=== PATIENT | male | born 1970 | race Caucasian/White ===

== ENCOUNTER → 2017-03-11 | Outpatient (CLI) | payer OTHER ==
--- NOTE | 2017-03-12 14:51 | XR ---
EXAMINATION TYPE: XR Hip Complete RT DATE OF EXAM: 03/11/2017 CLINICAL HISTORY: pain TECHNIQUE: AP and frogleg views of the right hip are obtained. COMPARISON: None. FINDINGS: There is no acute fracture/dislocation evident. The joint space appears moderately narro wed. Subchondral cyst formation and sclerosis seen.. The overlying soft tissue appears unremarkable. IMPRESSION: 1. There is no acute fracture or dislocation. ICD 10 NO FRACTURE, INITIAL EVALUATION
== END | disposition home or self-care (01) ==
LOC: RADXRYALE 11:58
PROVIDERS: ATTEND Physician Assistant Medical
DX: M25.551 Pain in right hip (principal)
CPT/HCPCS: 73502

== ENCOUNTER → 2017-11-13 | Outpatient (CLI) | payer OTHER ==
[2017-11-13 13:05] LABS: HCT 46.6 % (39.0-53.0); HGB 15.6 gm/dL (13.0-17.5); MCHC 33.4 g/dL (31.0-37.0); MCV 89.9 fL (80.0-100.0); Mean Platelet Volume 6.6; Platelet Count 288 k/uL (150-450); RBC 5.19 m/uL (4.30-5.90); RDW 12.5 % (11.5-15.5); WBC 9.7 k/uL (3.8-10.6)
[2017-11-13 13:07] LABS: Appearance,Urine Clear (Clear); Bilirubin,Urine Negative (Negative); Blood,Urine Negative (Negative); Color,Urine Yellow; Glucose,Urine (UA) Negative (Negative); Ketones,Urine Negative (Negative); Leukocyte Esterase,Urine Negative (Negative); Nitrite,Urine Negative (Negative); PH, Urine 5.5 (5.0-8.0); Protein,Urine Trace (Negative); Specific Gravity,Urine 1.025 (1.001-1.035); Urobilinogen,Urine <2.0 mg/dL (<2.0)
[2017-11-13 13:14] LABS: ALT 69 U/L (21-72); AST 45 U/L (17-59); Albumin 4.3 g/dL (3.5-5.0); Alkaline Phosphatase 65 U/L (38-126); Anion Gap 9 mmol/L; Blood Urea Nitrogen 16 mg/dL (9-20); Calcium 9.3 mg/dL (8.4-10.2); Carbon Dioxide 25 mmol/L (22-30); Chloride 109 mmol/L (98-107); Glucose 91 mg/dL (74-99); Partial Thromboplastin Time 23.8 sec (22.0-30.0); Potassium 4.4 mmol/L (3.5-5.1); Prothrombin Time 9.9 sec (9.0-12.0); Sodium 143 mmol/L (137-145); Total Bilirubin 0.8 mg/dL (0.2-1.3); Total Protein 7.1 g/dL (6.3-8.2)
== END | disposition home or self-care (01) ==
LOC: LABPAT 11:47
PROVIDERS: ATTEND Orthopaedic Surgery
DX: Z01.812 Encounter for preprocedural laboratory examination (principal)
CPT/HCPCS: 36415; 80053; 81003; 85027; 85610; 85730; 86850; 86900; 86901; 87070

== ENCOUNTER 2017-11-25 07:32 | Inpatient (IN) | payer OTHER ==
[2017-11-13 11:15] VITALS: BMI 37.8
[~2017-11-25 07:32] MED LIST: ACETAMINOPHEN TAB 500 MG TAB PO ONE; DEXAMETHASONE SOD PHOSPHATE 10 MG/ML 1 ML VIAL IV ONE; LIDOCAINE 1% 20 ML VIAL (10MG/ML) FOR IV START INTRADERMA PRN; MELOXICAM 7.5 MG TAB PO ONE; MIDAZOLAM 2 MG/2 ML VIAL IV PRN; ONDANSETRON 4 MG/2 ML VIAL IVP ONE; ROPIVACAINE 246.25 MG, EPINEPHrine 0.5 MG, KETOROLAC 30 MG, cloNIDine HCL/PF 80 MCG, WA... MISCELLANE ONE; TRANEXAMIC ACID 1,000 MG in SODIUM CHLORIDE 0.9% 50 ML IVPB ONE; ceFAZolin IN SWFI 2 GM/20 ML SYRINGE IVP ONE; fentaNYL (PF) 50 MCG/ML 2 ML AMP IV PRN
[2017-11-25] MEDS ORDERED: ONDANSETRON 4 MG/2 ML VIAL ONE (07:44)
[2017-11-25] MEDS: LACTATED RINGERS 1,000 ML IV SCH ×4 (08:35→13:45)
[2017-11-25] MEDS ORDERED: DEXAMETHASONE SOD PHOSPHATE 10 MG/ML 1 ML VIAL IV ONE (08:37)
[2017-11-25] MEDS ORDERED: SCOPOLAMINE 1.5MG/72HR PATCH TRANSDERM ONE (08:56)
[2017-11-25] MEDS ORDERED: MIDAZOLAM 2 MG/2 ML VIAL ONE ×2 (09:06→09:42)
[2017-11-25] MEDS ORDERED: MIDAZOLAM 2 MG/2 ML VIAL IV ONE (09:10)
[2017-11-25] MEDS ORDERED: DIAZEPAM 5 MG TAB PO PRN ×2 (09:14)
[2017-11-25] MEDS ORDERED: HYDROmorphone 1 MG/ML 1 ML SYRINGE IVP PRN ×3 (09:14)
[2017-11-25] MEDS ORDERED: NALOXONE 0.4 MG/ML 1 ML VIAL IV PRN (09:14)
[2017-11-25] MEDS ORDERED: hydrOXYzine PAMOATE 25 MG CAP PO PRN (09:14)
[2017-11-25] MEDS ORDERED: MAGNESIUM HYDROXIDE 2,400 MG/10 ML CUP PO PRN (09:14)
[2017-11-25] MEDS ORDERED: ONDANSETRON 4 MG/2 ML VIAL IVP PRN (09:14)
[2017-11-25] MEDS ORDERED: HYDROcodone/APAP 5-325MG 1 EACH TAB PO PRN (09:14)
[2017-11-25] MEDS ORDERED: diphenhydrAMINE 50 MG/ML 1 ML VIAL ONE (09:42)
[2017-11-25] MEDS ORDERED: TRANEXAMIC ACID 1,000 MG/10 ML VIAL ONE (09:42)
[2017-11-25] MEDS ORDERED: PROPOFOL 10 MG/ML 20 ML VIAL IV ONE (09:42)
[2017-11-25] MEDS ORDERED: fentaNYL (PF) 50 MCG/ML 2 ML AMP ONE (09:42)
[2017-11-25] MEDS ORDERED: PHENYLEPHRINE-0.9% NACL SYG 1 MG/10 ML SYRINGE ONE (09:42)
[2017-11-25] MEDS ORDERED: SODIUM CHLORIDE 0.9% IRRIG 1,000 ML BTL IRRIGATION ONE (09:42)
[2017-11-25] MEDS ORDERED: SODIUM CHLORIDE 0.9% 100 ML BAG ONE (09:42)
[2017-11-25] MEDS ORDERED: HEPARIN SODIUM,PORCINE 10,000 UNIT/ML 1 ML VIAL ONE (09:42)
[2017-11-25] MEDS ORDERED: ceFAZolin 3,000 MG in SODIUM CHLORIDE 0.9% IRRIGATIO 3,000 ML IRRIGATION ONE (10:10)
[2017-11-25] MEDS ORDERED: LACTATED RINGERS 1,000 ML IV ONE ×2 (10:53)
--- NOTE | 2017-11-25 11:03 | P.OP ---
Date of Procedure: 11/25/17 Preoperative Diagnosis: Severe osteoarthritis right hip Postoperative Diagnosis: Severe osteoarthritis right hip Procedure(s) Performed: Right total hip arthroplasty with a direct anterior approach Implants: Bowman and nephew Polarstem size 2 standard Bowman & Nephew R3, 3 hole acetabular shell, 54 mm Bowman & Nephew reflection 6.5 mm cancellus screw, 20 mm, 25 mm Bowman & Nephew R3, XLPE 20 acetabular liner Bowman & Nephew Oxinium femoral head 36 m, +0 All components were press-fit. The articulation is Oxinium on polyethylene. Anesthesia: spinal Surgeon: Terence Bledsoe Industrial Gas Fitter #1: Talia Murphy Estimated Blood Loss (ml): 250 (116 mL returned with Cell Saver) Pathology: other (Femoral head) Condition: stable Disposition: PACU Indications for Procedure: After failure of conservative treatment we discussed the surgical and nonsurgical treatment options at length. Patient wishes to proceed with a total hip arthroplasty with a direct anterior approach. Complications specific to this procedure were discussed at length, including but not limited to infection, leg length discrepancy, dislocation, and nerve injury. Patient is aware of all these complications and informed consent was obtained Operative Findings: The operative findings are consistent with severe osteoarthritis of the right hip Description of Procedure: Patient was seen and evaluated in the preoperative area, consent was reviewed, and the surgical site was marked with a skin marker. Patient was then brought to the operating room and given prophylactic antibiotics intravenously. 1 g of Tranexamic acid was also given. A spinal anesthetic was administered by the anesthesia department. The patient was then placed on the [facility] table with the bony prominences well-padded. The hip area was then prepped and draped in usual sterile fashion. A universal timeout was then performed, which confirmed the patient's name, surgical site, ALLERGIES, and procedure being performed. Next the incision site was located at 1 cm distal and 1 cm lateral to the anterior superior iliac spine. The skin and subcutaneous tissues were sharply incised. Incision was carefully dissected down to the fascia overlying the tensor fascia zakiya muscle. This fascia was then incised in line with the incision. Next, using blunt finger dissection, the tensor fascia zakiya muscle was dissected off its investing fascia. The muscle was then carefully retracted laterally with a cobra retractor over the lateral neck of the femur. Next, the circumflex vessels were identified and cauterized using the AquaMantis device. The anterior hip capsule was then exposed. The capsule was then opened and an inverted T fashion. Cobra retractors were then placed intracapsularly. The proximal femur was then visualized. The femoral neck was then osteotomized appropriate level above the lesser trochanter. Small amount of traction was placed with the [facility] table. A small wedge of bone was then removed from the remaining femoral head. Next, using a corkscrew femoral head was easily removed from the acetabulum. On gross visual inspection, the femoral head had complete loss of articular cartilage in multiple periarticular osteophytes. Attention was then turned to the acetabulum. the acetabulum was exposed and any remaining labrum was excised. Sequential reaming of the acetabulum was performed using fluoroscopic guidance. When the appropriate size was reached, a trial was then placed. The position and fit of the trial was checked with fluoroscopy. The trial was then removed. Then, using fluoroscopic guidance, the final implant was impacted at 20 of anteversion and 40 of abduction, and fully seated in the acetabulum. 2 screws were then placed in the acetabulum. Again fluoroscopy was used to check position of the screws. Next, the liner was then impacted, with a 20 elevated liner located in the anterior superior quadrant. Component locking was confirmed. Attention was then directed to the femur. With the aid of the [facility] table, the femur was externally rotated to approximately 130, extended, and abducted under the opposite leg. A side hook was then placed under the proximal femur, and the side hook elevator was used to elevate the proximal femur. Retractors were then placed. A capsular release was performed, as well as a release of the conjoined tendon, which afforded excellent visualization of the proximal femur. Next, a box osteotome was used to lateralize the proximal femur. A handle turner was then used to locate the femoral canal. Sequential broaching was then performed with appropriate size which afforded excellent fixation in the proximal femur. A trial was then placed with appropriate head and neck, and the hip was gently reduced with the aid of the [facility] table. Fluoroscopy was then used to check position of the components, as well as to ensure equal leg lengths. The hip was then gently dislocated and the trials were then removed. Final implants were then impacted and the hip was again reduced. Final fluoroscopic x-rays confirmed that the components were in anatomic position, as well as equal leg lengths. The hip was also taken through range of motion, and found to be stable. The hip was then copiously irrigated with antibiotic solution with pulsatile lavage. The hip was then irrigated with Irrisept solution. The soft tissues were then injected with a ropivacaine solution, which consisted of 246.25 mg of ropivacaine, 0.5 mg of epinephrine, 30 mg of Toradol, 80 g of clonidine, and 48.45 mL of sterile water, for a total of 100 mL of fluid injected. A second dose of 1 g of Tranexamic acid was also given. the fascia was then closed with 2-0 strata fix suture. The subcutaneous tissue was closed with 3-0 Vicryl. The subcuticular tissue was closed with 3-0 strata fix suture. The skin was then closed with Dermabond glue and a sterile silver dressing. The patient was then transferred to the recovery room in stable condition. The academic support assistant RAFI Carballo was required due to the complexity of surgery, and the need for skilled surgical tech for positioning, draping, exposure, retraction, and closure of the wound.
--- NOTE | 2017-11-25 11:16 | FL ---
EXAMINATION TYPE: FL guided pain mgmt statistic, XR Hip Limited RT DATE OF EXAM: 11/25/2017 COMPARISON: NONE HISTORY: Right anterior hip pain TECHNIQUE: Fluoroscopy. FINDINGS/IMPRESSION: Fluoroscopic guidance was provided during procedure performed by Dr. Bledsoe. A total of 44 seconds of fluoroscopic time was utilized during the procedure and 2 spot images was ac quired during the procedure.
--- NOTE | 2017-11-25 11:59 | XR ---
EXAMINATION TYPE: XR Hip Limited RT DATE OF EXAM: 11/25/2017 CLINICAL HISTORY: Right hip pain and osteoarthritis. TECHNIQUE: Single AP portable view of right hip is obtained immediately postoperatively. COMPARISON: None. FINDINGS: Metallic hardware from right hip arthroplasty is seen and appears satisfactory in alignment and position. There is evidence of recent surgery with subcutaneous gas and soft tissue swelling no gio laterally. IMPRESSION: Metallic hardware from right hip arthroplasty is satisfactory in position.
[2017-11-25] MEDS: SODIUM CHLORIDE 0.9% 1,000 ML IV SCH (13:39)
--- NOTE | 2017-11-25 14:25 | P.CONS ---
History of Present Illness - Reason for Consult Hypotension - History of Present Illness 47-year-old pleasant gentleman underwent the elective right hip arthroplasty direct anterior approach successfully underwent surgery no drains in place patient has a bit of hypotension which is expected post surgery patient doesn't have any other chronic medical problems did not pass gas yet did not move his bowel yet denied any fever chills nausea vomiting cough. Patient will be started on IV fluids at 100 mL/h Review of Systems REVIEW OF SYSTEMS: CONSTITUTIONAL: No fever, no malaise, no fatigue. HEENT: No recent visual problems or hearing problems. Denied any sore throat. CARDIOVASCULAR: No chest pain, orthopnea, PND, no palpitations, no syncope. PULMONARY: No shortness of breath, no cough, no hemoptysis. GASTROINTESTINAL: No diarrhea, no nausea, no vomiting, no abdominal pain. Normoactive bowel sounds. NEUROLOGICAL: No headaches, no weakness, no numbness. HEMATOLOGICAL: Denies any bleeding or petechiae. GENITOURINARY: Denies any burning micturition, frequency, or urgency. MUSCULOSKELETAL/RHEUMATOLOGICAL: Denies any joint pain, swelling, or any muscle pain. ENDOCRINE: Denies any polyuria or polydipsia. The rest of the 14-point review of systems is negative. Past Medical History Past Medical History: Osteoarthritis (OA), Sleep Apnea/CPAP/BIPAP Additional Past Medical History / Comment(s): no longer problems with sleep apnea since deviated septum History of Any Multi-Drug Resistant Organisms: None Reported Additional Past Surgical History / Comment(s): deviated septum repair,vasectomy Past Anesthesia/Blood Transfusion Reactions: Motion Sickness, Postoperative Nausea & Vomiting (PONV) Additional Past Anesthesia/Blood Transfusion Reaction / Comm: no hx blood transfusion Smoking Status: Current every day smoker - Past Family History Mother Family Medical History: No Reported History Medications and Allergies Home Medications Medication Instructions Recorded Confirmed Type No Known Home Medications 11/13/17 11/25/17 History Allergies Allergy/AdvReac Type Severity Reaction Status Date / Time No Known Allergies Allergy Verified 11/25/17 12:22 Physical Exam Vitals: Vital Signs Temp Pulse Pulse Resp BP Pulse Ox 11/25/17 12:10 58 L 16 98/55 97 11/25/17 11:55 64 16 109/54 100 11/25/17 11:40 64 16 102/52 100 11/25/17 11:28 96.8 F L 71 12 104/55 99 11/25/17 09:25 71 16 96 11/25/17 08:04 97.8 F 68 16 146/71 97 Intake and Output 11/24/17 11/25/17 11/25/17 22:59 06:59 14:59 Intake Total 1881 Output Total 250 Balance 1631 Intake: IV 1751 Intake, IV Titration 130 Amount Sodium Chloride 0.9% 1, 130 000 ml @ 65 mls/hr IV . [id number] [facility] Rx#:[id number] Output: Estimated Blood Loss 250 PHYSICAL EXAMINATION: GENERAL: The patient is alert and oriented x3, not in any acute distress. Well developed, well nourished. HEENT: Pupils are round and equally reacting to light. EOMI. No scleral icterus. No conjunctival pallor. Normocephalic, atraumatic. No pharyngeal erythema. No thyromegaly. CARDIOVASCULAR: S1 and S2 present. No murmurs, rubs, or gallops. PULMONARY: Chest is clear to auscultation, no wheezing or crackles. ABDOMEN: Soft, nontender, nondistended, normoactive bowel sounds. No palpable organomegaly. MUSCULOSKELETAL: No joint swelling or deformity. EXTREMITIES: No cyanosis, clubbing, or pedal edema. NEUROLOGICAL: Gross neurological examination did not reveal any focal deficits. SKIN: No rashes. Assessment and Plan Plan: -Right hip arthroplasty: Pain management due to prophylaxis per primary service -Hypotension expected in the perioperative period is symptomatic IV fluids at 120 mL per hour -Osteoarthritis -Sleep apnea
[2017-11-25] MEDS: ceFAZolin IN SWFI 2 GM/20 ML SYRINGE IVP SCH ×2 (16:11→23:27)
[2017-11-25] MEDS ORDERED: SENNOSIDES-DOCUSATE SODIUM 1 EACH TAB PO SCH (21:00)
[2017-11-25] MEDS: ASPIRIN 325 MG TAB PO SCH (21:35)
[2017-11-25] MEDS: HYDROcodone/APAP 5-325MG 1 EACH TAB PO PRN (21:36)
[2017-11-26] MEDS: SODIUM CHLORIDE 0.9% 1,000 ML IV SCH ×2 (01:13→11:26)
[2017-11-26] MEDS: HYDROcodone/APAP 5-325MG 1 EACH TAB PO PRN (03:54)
[2017-11-26 07:22] VITALS: BP 105/65; PULSE 83; RESP 16; TEMP 97.9
[2017-11-26] MEDS: ASPIRIN 325 MG TAB PO SCH (08:33)
[2017-11-26 08:57] LABS: Basophils % (A) 0 %; Eosinophils # (A) 0.1 k/uL (0-0.7); Eosinophils % (A) 0 %; HCT 39.1 % (39.0-53.0); HGB 13.5 gm/dL (13.0-17.5); Lymphocytes # (A) 2.3 k/uL (1.0-4.8); Lymphocytes % (A) 14 %; MCH 30.6 pg (25.0-35.0); MCHC 34.6 g/dL (31.0-37.0); MCV 88.5 fL (80.0-100.0); Mean Platelet Volume 6.6; Monocytes % (A) 6 %; Neutrophils # (A) 13.1 k/uL (1.3-7.7); Neutrophils % (A) 78 %; Platelet Count 291 k/uL (150-450); RBC 4.42 m/uL (4.30-5.90); RDW 12.6 % (11.5-15.5); WBC 16.8 k/uL (3.8-10.6)
[2017-11-26] MEDS ORDERED: MELOXICAM 7.5 MG TAB PO SCH (09:00)
--- NOTE | 2017-11-26 09:32 | P.DS ---
Providers Date of admission: 11/25/17 07:32 Expected date of discharge: 11/26/17 Attending physician: Terence Bledsoe Consults: 11/25/17 09:14 Consult Physician Routine Consulting Provider: Lisa Hummel Consult Reason/Comments: medical management Do you want consulting provider notified?: Yes Primary care physician: Terence Apodaca - Discharge Diagnosis(es) (1) Primary osteoarthritis of right hip Current Visit: Yes Status: Acute (2) S/P total hip arthroplasty Current Visit: Yes Status: Acute Hospital Course: This is a 47-year-old male with known history of degenerative arthritis of the right hip. The patient presents for evaluation. After discussion and consideration patient elects to proceed with total hip arthroplasty. The patient is seen preoperatively by Dr. Bledsoe and medically cleared for surgery by their primary care physician. Patient is admitted to [facility] on 11/25/2017 for total hip arthroplasty. The procedures performed without complication or sequelae. The patient is doing well postoperatively. Labs and vital signs are stable on day of discharge. On day of discharge patient's hip incision is healing well. There is minimal erythema. There is no drainage noted at this time. There is minimal soft tissue swelling to the hip and thigh. Patient has full foot and ankle motion without difficulty or pain. Neurovascular status to the right lower extremity is intact. Patient is discharged home in good condition. Please see med rec for accurate list of home medications. Plan - Discharge Summary Discharge Rx Participant: Yes New Discharge Prescriptions: New Aspirin 325 mg PO BID #60 tab HYDROcodone/APAP 5-325MG [[place] 5-325] 1 - 2 tab PO Q4-6H PRN #84 tab PRN Reason: Pain Sennosides [Senokot] 1 tab PO BID #60 tablet Discharge Medication List Aspirin 325 mg PO BID #60 tab 11/26/17 [Rx] HYDROcodone/APAP 5-325MG [[place] 5-325] 1 - 2 tab PO Q4-6H PRN #84 tab 11/26/17 [ Rx] Sennosides [Senokot] 1 tab PO BID #60 tablet 11/26/17 [Rx] Follow up Appointment(s)/Referral(s): Terence Bledsoe DO [Doctor of Osteopathic Medicine] - 2 Weeks Activity/Diet/Wound Care/Special Instructions: Weightbearing as tolerated with walker Leave dressing intact. Dressing may be removed by home care nurse in 10 days. May shower with dressing on. Follow-up with [facility] in 2 weeks, please call with any questions or concerns [phone] Discharge Disposition: HOME WITH HOME HEALTH SERVICES
[2017-11-26] MEDS: LACTATED RINGERS 1,000 ML IV SCH (10:27)
== END 2017-11-26 13:05 | disposition home health service (06) | DRG 470 ==
LOC: 2ORMAIN 07:32 → 3SUR 11:43
PROVIDERS: ADMIT Orthopaedic Surgery; ATTEND Orthopaedic Surgery
PROC: 30233N0 Transfusion of Autologous Red Blood Cells into Peripheral Vein, Percutaneous Approach (ICD-10-PCS; 2017-11-25)
PROC: 0SR906A Replacement of Right Hip Joint with Oxidized Zirconium on Polyethylene Synthetic Substitute, Uncemented, Open Approach (ICD-10-PCS; principal; 2017-11-25 09:15)
DX: M16.11 Unilateral primary osteoarthritis, right hip (principal); I95.9 Hypotension, unspecified; E66.01 Morbid (severe) obesity due to excess calories; Z68.37 Body mass index [BMI] 37.0-37.9, adult; G47.33 Obstructive sleep apnea (adult) (pediatric); K21.9 Gastro-esophageal reflux disease without esophagitis; F17.210 Nicotine dependence, cigarettes, uncomplicated; Z98.52 Vasectomy status; Z99.89 Dependence on other enabling machines and devices
CPT/HCPCS: 73501; 85025; 86850; 86891; 86900; 86901; 88300

== ENCOUNTER 2020-03-11 04:20 | Emergency (ER) | payer OTHER ==
[2020-03-11 04:32] VITALS: BP 149/90; PULSE 72; RESP 20; TEMP 97.7
[2020-03-11] MEDS ORDERED: KETOROLAC 15 MG/ML 1 ML VIAL IVP STA (04:39)
--- NOTE | 2020-03-11 05:03 | ED ---
Abdominal Pain HPI - General Chief Complaint: Abdominal Pain Stated Complaint: LT flank pain Time Seen by Provider: 03/11/20 04:29 Source: patient Mode of arrival: ambulatory Limitations: no limitations - History of Present Illness Initial Comments: This patient is 50-year-old man who presents to be evaluated for left flank pain. The patient states that he started having pain initially couple of days ago and he felt that it was in his back. He did go to see a chiropractor. Patient states that over the course of tonight the pain worsened. He also has been having some nausea and vomiting tonight. No change in urination noted. No change in bowel movements. MD Complaint: flank pain -: days(s) Location: L flank Radiation: LLQ Migration to: no migration Severity: severe Quality: cramping Consistency: colicky Improves With: nothing Worsens With: nothing Associated Symptoms: nausea, vomiting - Related Data Previous Rx's Medication Instructions Recorded Aspirin 325 mg PO BID #60 tab 11/26/17 HYDROcodone/APAP 5-325MG [[place] 1 - 2 tab PO Q4-6H PRN #84 tab 11/26/17 5-325] Sennosides [Senokot] 1 tab PO BID #60 tablet 11/26/17 HYDROcodone/APAP 5-325MG [[place] 1 tab PO Q4HR PRN 3 Days #18 tab 03/11/20 5-325] Ondansetron Odt [Zofran ODT] 4 mg PO Q8HR PRN #10 tab 03/11/20 Tamsulosin [Flomax] 0.4 mg PO DAILY #14 cap 03/11/20 Allergies Allergy/AdvReac Type Severity Reaction Status Date / Time No Known Allergies Allergy Verified 03/11/20 04:32 Review of Systems ROS Statement: Those systems with pertinent positive or pertinent negative responses have been documented in the HPI. ROS Other: All systems not noted in ROS Statement are negative. Constitutional: Denies: fever, chills Respiratory: Denies: cough, dyspnea Cardiovascular: Denies: chest pain, palpitations, edema Gastrointestinal: Reports: as per HPI, abdominal pain, nausea, vomiting. Denies: diarrhea, constipation, melena, hematochezia Genitourinary: Denies: dysuria, hematuria Musculoskeletal: Denies: back pain Skin: Denies: rash Neurological: Denies: headache, weakness, numbness Past Medical History Past Medical History: Osteoarthritis (OA), Sleep Apnea/CPAP/BIPAP Additional Past Medical History / Comment(s): no longer problems with sleep apnea since deviated septum History of Any Multi-Drug Resistant Organisms: None Reported Past Surgical History: Joint Replacement Additional Past Surgical History / Comment(s): deviated septum repair,vasectomy Past Anesthesia/Blood Transfusion Reactions: Motion Sickness, Postoperative Nausea & Vomiting (PONV) Additional Past Anesthesia/Blood Transfusion Reaction / Comment(s): no hx blood transfusion Past Psychological History: No Psychological Hx Reported Smoking Status: Never smoker Past Alcohol Use History: Occasional Past Drug Use History: None Reported - Past Family History Mother Family Medical History: No Reported History General Exam Limitations: no limitations General appearance: alert, in no apparent distress Head exam: Present: atraumatic, normocephalic Eye exam: Present: normal appearance. Absent: scleral icterus, conjunctival injection Neck exam: Present: normal inspection Respiratory exam: Present: normal lung sounds bilaterally. Absent: respiratory distress, wheezes, rales, rhonchi, stridor Cardiovascular Exam: Present: regular rate, normal rhythm, normal heart sounds. Absent: systolic murmur, diastolic murmur, rubs, gallop GI/Abdominal exam: Present: soft. Absent: distended, tenderness, guarding, rebound, rigid, mass, pulsatile mass, hernia Extremities exam: Present: normal inspection, normal capillary refill. Absent: pedal edema, calf tenderness Back exam: Present: normal inspection. Absent: CVA tenderness (R), CVA tenderness (L), vertebral tenderness Neurological exam: Present: alert Skin exam: Present: warm, dry, intact, normal color. Absent: rash Course Vital Signs 03/11/20 04:29 Temperature 97.7 F Pulse Rate 72 Respiratory 20 Rate Blood Pressure 149/90 O2 Sat by Pulse 97 Oximetry Medical Decision Making - Medical Decision Making Patient's 50-year-old man presenting with left flank pain and found to have stone on the computed tomography scan. He has had marked improvement in symptoms following medication. Patient amenable for outpatient management at this point. We discussed appropriate further care and follow-up as well as the return parameters. Also discussed the small lung nodule found and as patient is smoker he is directed to follow up for repeat imaging within one year. - Lab Data Result diagrams: 03/11/20 05:27 03/11/20 05:27 Lab Results 03/11/20 03/11/20 03/11/20 Range/Units 04:42 05:27 05:27 WBC 10.2 (3.8-10.6) k/uL RBC 5.15 (4.30-5.90) m/uL Hgb 15.9 (13.0-17.5) gm/dL Hct 46.0 (39.0-53.0) % MCV 89.3 (80.0-100.0) fL MCH 30.9 (25.0-35.0) pg MCHC 34.6 (31.0-37.0) g/dL RDW 12.2 (11.5-15.5) % Plt Count 290 (150-450) k/uL MPV 6.8 Neutrophils % 68 % Lymphocytes % 21 % Monocytes % 7 % Eosinophils % 2 % Basophils % 1 % Neutrophils # 6.9 (1.3-7.7) k/uL Lymphocytes # 2.1 (1.0-4.8) k/uL Monocytes # 0.7 (0-1.0) k/uL Eosinophils # 0.2 (0-0.7) k/uL Basophils # 0.1 (0-0.2) k/uL Sodium 141 (137-145) mmol/L Potassium 4.6 (3.5-5.1) mmol/L Chloride 110 H (98-107) mmol/L Carbon Dioxide 23 (22-30) mmol/L Anion Gap 8 mmol/L BUN 15 (9-20) mg/dL Creatinine 1.18 (0.66-1.25) mg/dL Est GFR (CKD-EPI)AfAm 83 (>60 ml/min/1.73 sqM) Est GFR (CKD-EPI)NonAf 72 (>60 ml/min/1.73 sqM) Glucose 132 H (74-99) mg/dL Calcium 9.2 (8.4-10.2) mg/dL Total Bilirubin 0.4 (0.2-1.3) mg/dL AST 38 (17-59) U/L ALT 71 H (4-49) U/L Alkaline Phosphatase 69 (38-126) U/L Total Protein 7.2 (6.3-8.2) g/dL Albumin 4.3 (3.5-5.0) g/dL Amylase 146 H (30-110) U/L Lipase 888 H (23-300) U/L Urine Color Yellow Urine Appearance Clear (Clear) Urine pH 5.5 (5.0-8.0) Ur Specific [place] 1.024 (1.001-1.035) Urine Protein Trace H (Negative) Urine Glucose (UA) Negative (Negative) Urine Ketones Negative (Negative) Urine Blood Large H (Negative) Urine Nitrite Negative (Negative) Urine Bilirubin Negative (Negative) Urine Urobilinogen <2.0 (<2.0) mg/dL Ur Leukocyte Esterase Negative (Negative) Urine RBC 146 H (0-5) /hpf Urine WBC 1 (0-5) /hpf Ur Squamous Epith Cells <1 (0-4) /hpf Urine Mucus Rare H (None) /hpf Disposition Clinical Impression: Kidney stone on left side Disposition: HOME SELF-CARE Condition: Good Instructions (If sedation given, give patient instructions): Kidney Stones (ED) Additional Instructions: The computed tomography scan found a small nodule at the base of your lung. Please follow-up with your physician to see about repeat imaging in one year Prescriptions: Tamsulosin [Flomax] 0.4 mg PO DAILY #14 cap HYDROcodone/APAP 5-325MG [[place] 5-325] 1 tab PO Q4HR PRN 3 Days #18 tab PRN Reason: Pain Ondansetron Odt [Zofran ODT] 4 mg PO Q8HR PRN #10 tab PRN Reason: Nausea Is patient prescribed a controlled substance at d/c from ED?: Yes When asked, does pt state using other controlled substances?: No If prescribed controlled substance>3 days was MAPS reviewed?: Prescribed <3 Days If opioid is for acute pain is fill amount 7 days or less?: Yes If Rx opioid, was Start Talking consent form obtained?: Yes Referrals: Melissa Mann, [facility] [Primary Care Provider] - 1-2 days Kevin Orellana MD [STAFF PHYSICIAN] - 1-2 days
[2020-03-11] MEDS ORDERED: ONDANSETRON 4 MG/2 ML VIAL IVP STA (05:19)
[2020-03-11 05:36] LABS: Appearance,Urine Clear (Clear); Bilirubin,Urine Negative (Negative); Blood,Urine Large (Negative); Color,Urine Yellow; Glucose,Urine (UA) Negative (Negative); Ketones,Urine Negative (Negative); Leukocyte Esterase,Urine Negative (Negative); Mucus,Urine Rare /hpf; Nitrite,Urine Negative (Negative); PH, Urine 5.5 (5.0-8.0); Protein,Urine Trace (Negative); RBC,Urine 146 /hpf (0-5); Specific Gravity,Urine 1.024 (1.001-1.035); Squamous Epithelial Cell,Urine <1 /hpf (0-4); Urobilinogen,Urine <2.0 mg/dL (<2.0); WBC,Urine 1 /hpf (0-5)
[2020-03-11 05:39] LABS: Basophils # (A) 0.1 k/uL (0-0.2); Basophils % (A) 1 %; Eosinophils # (A) 0.2 k/uL (0-0.7); Eosinophils % (A) 2 %; HGB 15.9 gm/dL (13.0-17.5); Lymphocytes # (A) 2.1 k/uL (1.0-4.8); Lymphocytes % (A) 21 %; MCH 30.9 pg (25.0-35.0); MCHC 34.6 g/dL (31.0-37.0); MCV 89.3 fL (80.0-100.0); Mean Platelet Volume 6.8; Monocytes # (A) 0.7 k/uL (0-1.0); Monocytes % (A) 7 %; Neutrophils # (A) 6.9 k/uL (1.3-7.7); Neutrophils % (A) 68 %; Platelet Count 290 k/uL (150-450); RBC 5.15 m/uL (4.30-5.90); RDW 12.2 % (11.5-15.5); WBC 10.2 k/uL (3.8-10.6)
[2020-03-11 05:47] LABS: Albumin 4.3 g/dL (3.5-5.0); Calcium 9.2 mg/dL (8.4-10.2); Potassium 4.6 mmol/L (3.5-5.1); Total Bilirubin 0.4 mg/dL (0.2-1.3); Total Protein 7.2 g/dL (6.3-8.2)
[2020-03-11] MEDS ORDERED: TAMSULOSIN 0.4 MG CAP.ER.24H PO STA (06:04)
--- NOTE | 2020-03-11 06:08 | CT ---
EXAM: CT Abdomen and Pelvis Without Intravenous Contrast CLINICAL HISTORY: ITS.REASON CT Reason: stone protocol, L flank pain TECHNIQUE: Axial computed tomography images of the abdomen and pelvis without intravenous contrast. CTDI is 20.57 mGy and DLP is 1200.4 mGy-cm. This CT exam was performed using one or more of the following dose reduction techniques: automated exposure control, adjustment of the mA and/or kV according to patient size, and/or use of iterative reconstruction technique. Coronal and sagittal reformatted images were created and reviewed. COMPARISON: No relevant prior studies available. FINDINGS: Lung bases: 4 mm subpleural nodule in lateral left lower lobe on series 201 image 24. ABDOMEN: Liver: Mildly enlarged fatty liver. Gallbladder and bile ducts: Unremarkable. No calcified stones. No ductal dilation. Pancreas: Unremarkable. No ductal dilation. Spleen: Unremarkable. No splenomegaly. Adrenals: Unremarkable. No mass. Kidneys and ureters: 5 x 7 mm obstructing stone in the proximal left ureter about 1.5 cm from the renal pelvis, causes mild hydronephrosis. Stomach and bowel: Unremarkable. No obstruction. No mucosal thickening. PELVIS: Appendix: Normal appendix. Bladder: Unremarkable. No stones. Reproductive: Unremarkable as visualized. ABDOMEN and PELVIS: Intraperitoneal space: Unremarkable. No free air. No significant fluid collection. Bones/joints: No acute fracture. No dislocation. Soft tissues: Unremarkable. Vasculature: Unremarkable. No abdominal aortic aneurysm. Lymph nodes: Unremarkable. No enlarged lymph nodes. IMPRESSION: 1. 5 x 7 mm obstructing stone in the proximal left ureter about 1.5 cm from the renal pelvis, causes mild hydronephrosis. 2. 4 mm subpleural nodule in lateral left lower lobe. Fleischner Society Guidelines for low-risk patients, no follow-up is necessary. For high-risk patients (smoking history or other known risk factors) an optional chest CT at 12 months could be performed.
[2020-03-11] MEDS ORDERED: HYDROmorphone 0.5 MG/0.5 ML SYRINGE IVP STA (06:27)
== END 2020-03-11 06:44 | disposition home or self-care (01) ==
LOC: EC 04:20
DX: N13.2 Hydronephrosis with renal and ureteral calculous obstruction (principal); R91.1 Solitary pulmonary nodule; G47.30 Sleep apnea, unspecified; F17.200 Nicotine dependence, unspecified, uncomplicated; Z99.89 Dependence on other enabling machines and devices; Z96.0 Presence of urogenital implants; Z96.60 Presence of unspecified orthopedic joint implant
CPT/HCPCS: 36415; 80053; 82150; 83690; 85025; 81001; 74176; 99284; J2405; J1885; J1170

== ENCOUNTER 2020-03-12 21:30 | Inpatient (IN) | payer OTHER ==
[2020-03-12] MEDS ORDERED: KETOROLAC 15 MG/ML 1 ML VIAL IVP STA (21:50)
[2020-03-12] MEDS ORDERED: HYDROmorphone 0.5 MG/0.5 ML SYRINGE IVP STA (21:50)
[2020-03-12] MEDS ORDERED: ONDANSETRON 4 MG/2 ML VIAL IVP STA (22:02)
--- NOTE | 2020-03-12 22:06 | ED ---
Abdominal Pain HPI - General Chief Complaint: Abdominal Pain Stated Complaint: Revisit Kidney Stone Time Seen by Provider: 03/12/20 21:49 Source: patient Mode of arrival: ambulatory Limitations: no limitations - History of Present Illness Initial Comments: 's patient is a 50-year-old man returns for reevaluation related to the left flank and left lower quadrant pain. He was seen here on the chair frame builder of the for the same, where computed tomography scan did show a 5 x 7 mm stone in the proximal left ureter. At that time the patient's symptoms were well controlled and he was amenable to outpatient management, but the patient states the symptoms recurred later in that day and he has been trying to manage at home with the medications but continues to have pain, nausea and vomiting. He does state that the pain seems to have progressed further into the left lower quadrant. He has not noted fever or chills. MD Complaint: flank pain -: days(s) Location: L flank Radiation: none Migration to: LLQ Severity: severe Quality: cramping, sharp Consistency: colicky Improves With: nothing Worsens With: nothing Associated Symptoms: nausea, vomiting Treatments Prior to Arrival: prescription analgesics - Related Data Previous Rx's Medication Instructions Recorded HYDROcodone/APAP 5-325MG [[place] 1 tab PO Q4HR PRN 3 Days #18 tab 03/11/20 5-325] Ondansetron Odt [Zofran ODT] 4 mg PO Q8HR PRN #10 tab 03/11/20 Tamsulosin [Flomax] 0.4 mg PO DAILY #14 cap 03/11/20 Allergies Allergy/AdvReac Type Severity Reaction Status Date / Time No Known Allergies Allergy Verified 03/12/20 22:28 Review of Systems ROS Statement: Those systems with pertinent positive or pertinent negative responses have been documented in the HPI. ROS Other: All systems not noted in ROS Statement are negative. Constitutional: Denies: fever, chills, weakness Respiratory: Denies: cough, dyspnea Cardiovascular: Denies: chest pain, palpitations, edema Gastrointestinal: Reports: abdominal pain, nausea, vomiting. Denies: diarrhea, constipation, melena, hematochezia Genitourinary: Denies: dysuria, frequency, hematuria, testicular pain, testicular mass Musculoskeletal: Denies: back pain Skin: Denies: rash Neurological: Denies: headache, weakness Past Medical History Past Medical History: Osteoarthritis (OA), Sleep Apnea/CPAP/BIPAP Additional Past Medical History / Comment(s): no longer problems with sleep apnea since deviated septum History of Any Multi-Drug Resistant Organisms: None Reported Past Surgical History: Joint Replacement Additional Past Surgical History / Comment(s): deviated septum repair,vasectomy Past Anesthesia/Blood Transfusion Reactions: Motion Sickness, Postoperative Nausea & Vomiting (PONV) Additional Past Anesthesia/Blood Transfusion Reaction / Comment(s): no hx blood transfusion Past Psychological History: No Psychological Hx Reported Smoking Status: Never smoker Past Alcohol Use History: Occasional Past Drug Use History: None Reported - Past Family History Mother Family Medical History: No Reported History General Exam Limitations: no limitations General appearance: alert, in no apparent distress Head exam: Present: atraumatic, normocephalic Eye exam: Present: normal appearance. Absent: scleral icterus, conjunctival injection ENT exam: Present: normal oropharynx Neck exam: Present: normal inspection Respiratory exam: Present: normal lung sounds bilaterally. Absent: respiratory distress, wheezes, rales, rhonchi, stridor Cardiovascular Exam: Present: regular rate, normal rhythm, normal heart sounds. Absent: systolic murmur, diastolic murmur, rubs, gallop GI/Abdominal exam: Present: soft. Absent: distended, tenderness, guarding, rebound, rigid, mass, pulsatile mass, hernia Extremities exam: Present: normal inspection, normal capillary refill. Absent: pedal edema, calf tenderness Back exam: Present: normal inspection. Absent: CVA tenderness (R), CVA tenderness (L) Neurological exam: Present: alert Skin exam: Present: warm, dry, intact, normal color. Absent: rash Course Vital Signs 03/12/20 21:38 Temperature 98.9 F Pulse Rate 77 Respiratory 18 Rate Blood Pressure 134/99 O2 Sat by Pulse 97 Oximetry Medical Decision Making - Lab Data Result diagrams: 03/12/20 22:23 03/12/20 22:23 Lab Results 03/12/20 03/12/20 03/12/20 Range/Units 22:23 22: 22: WBC 14.7 H (3.8-10.6) k/uL RBC 4.91 (4.30-5.90) m/uL Hgb 14.8 (13.0-17.5) gm/dL Hct 44.2 (39.0-53.0) % MCV 90.0 (80.0-100.0) fL MCH 30.2 (25.0-35.0) pg MCHC 33.6 (31.0-37.0) g/dL RDW 12.6 (11.5-15.5) % Plt Count 252 (150-450) k/uL MPV 7.4 Neutrophils % 79 % Lymphocytes % 9 % Monocytes % 9 % Eosinophils % 1 % Basophils % 0 % Neutrophils # 11.7 H (1.3-7.7) k/uL Lymphocytes # 1.4 (1.0-4.8) k/uL Monocytes # 1.3 H (0-1.0) k/uL Eosinophils # 0.1 (0-0.7) k/uL Basophils # 0.1 (0-0.2) k/uL Sodium 135 L (137-145) mmol/L Potassium 4.0 (3.5-5.1) mmol/L Chloride 103 (98-107) mmol/L Carbon Dioxide 24 (22-30) mmol/L Anion Gap 8 mmol/L BUN 17 (9-20) mg/dL Creatinine 1.57 H (0.66-1.25) mg/dL Est GFR (CKD-EPI)AfAm 59 (>60 ml/min/1.73 sqM) Est GFR (CKD-EPI)NonAf 51 (>60 ml/min/1.73 sqM) Glucose 130 H (74-99) mg/dL Calcium 9.1 (8.4-10.2) mg/dL Total Bilirubin 0.8 (0.2-1.3) mg/dL AST 30 (17-59) U/L ALT 49 (4-49) U/L Alkaline Phosphatase 62 (38-126) U/L Total Protein 7.0 (6.3-8.2) g/dL Albumin 4.0 (3.5-5.0) g/dL Amylase 66 (30-110) U/L Lipase 82 (23-300) U/L Urine Color Yellow Urine Appearance Clear (Clear) Urine pH 5.5 (5.0-8.0) Ur Specific [place] 1.017 (1.001-1.035) Urine Protein Negative (Negative) Urine Glucose (UA) Negative (Negative) Urine Ketones Negative (Negative) Urine Blood Moderate H (Negative) Urine Nitrite Negative (Negative) Urine Bilirubin Negative (Negative) Urine Urobilinogen <2.0 (<2.0) mg/dL Ur Leukocyte Esterase Negative (Negative) Urine RBC 3 (0-5) /hpf Urine WBC 3 (0-5) /hpf Hyaline Casts 3 H (0-2) /lpf Urine Mucus Rare H (None) /hpf Disposition Clinical Impression: Kidney stone on left side, Intractable abdominal pain Disposition: ADMITTED IP TO THIS HOSP Condition: Good Is patient prescribed a controlled substance at d/c from ED?: No Referrals: Terence Apodaca DO [Primary Care Provider] - 1-2 days
[2020-03-12 22:32] LABS: Basophils # (A) 0.1 k/uL (0-0.2); Basophils % (A) 0 %; Eosinophils # (A) 0.1 k/uL (0-0.7); Eosinophils % (A) 1 %; HCT 44.2 % (39.0-53.0); HGB 14.8 gm/dL (13.0-17.5); Lymphocytes # (A) 1.4 k/uL (1.0-4.8); Lymphocytes % (A) 9 %; MCH 30.2 pg (25.0-35.0); MCHC 33.6 g/dL (31.0-37.0); Mean Platelet Volume 7.4; Monocytes # (A) 1.3 k/uL (0-1.0); Monocytes % (A) 9 %; Neutrophils # (A) 11.7 k/uL (1.3-7.7); Neutrophils % (A) 79 %; Platelet Count 252 k/uL (150-450); RBC 4.91 m/uL (4.30-5.90); RDW 12.6 % (11.5-15.5); WBC 14.7 k/uL (3.8-10.6)
--- NOTE | 2020-03-12 22:36 | XR ---
EXAMINATION TYPE: XR KUB DATE OF EXAM: 03/12/2020 COMPARISON: NONE HISTORY: Renal stone. Pain. TECHNIQUE: 2 views upright FINDINGS: There is some gas in the transverse colon. There is no evidence of free air. I see no evide nce of a bowel obstruction. Lung bases are clear. There are no pathologic calcifications over the kid neys and ureters. There is right hip prosthesis. IMPRESSION: Nonacute abdomen. No evidence of a urinary tract calculus.
[2020-03-12 22:43] LABS: Calcium 9.1 mg/dL (8.4-10.2); Total Bilirubin 0.8 mg/dL (0.2-1.3)
[2020-03-12 23:00] LABS: Appearance,Urine Clear (Clear); Bilirubin,Urine Negative (Negative); Blood,Urine Moderate (Negative); Color,Urine Yellow; Glucose,Urine (UA) Negative (Negative); Hyaline Casts,Urine 3 /lpf (0-2); Ketones,Urine Negative (Negative); Leukocyte Esterase,Urine Negative (Negative); Mucus,Urine Rare /hpf; Nitrite,Urine Negative (Negative); PH, Urine 5.5 (5.0-8.0); Protein,Urine Negative (Negative); RBC,Urine 3 /hpf (0-5); Specific Gravity,Urine 1.017 (1.001-1.035); Urobilinogen,Urine <2.0 mg/dL (<2.0); WBC,Urine 3 /hpf (0-5)
[2020-03-12] MEDS ORDERED: NALOXONE 0.4 MG/ML 1 ML VIAL IV PRN (23:13)
[2020-03-12] MEDS ORDERED: ONDANSETRON 4 MG/2 ML VIAL IVP PRN (23:13)
[2020-03-12] MEDS ORDERED: HYDROmorphone 0.5 MG/0.5 ML SYRINGE IVP PRN (23:13)
[2020-03-12] MEDS: SODIUM CHLORIDE 0.9% 1,000 ML IV SCH (23:45)
[2020-03-12] MEDS: FAMOTIDINE 20 MG/2 ML VIAL IV SCH (23:46)
[2020-03-13] MEDS: HYDROmorphone 1 MG/ML 1 ML SYRINGE IVP PRN ×2 (01:24→05:10)
--- NOTE | 2020-03-13 09:17 | P.GSHP ---
History of Present Illness H&P Date: 03/13/20 Chief Complaint: Left renal colic The patient is a 50-year-old male with no prior history of urolithiasis. In 03/09/2020 he experienced acute onset of left lower back/flank pain. He was evaluated in the ER early in the morning 03/11/2020. A computed tomography scan revealed mild left hydronephrosis due to a 5 x 7 mm left proximal ureteral calculus. He was discharged home on oral analgesics but returned yesterday evening with intractable pain. He was subsequently admitted. His pain has shifted to the left lower quadrant, the significance of which is unclear. He de nies hematuria and voiding symptoms. - Constitutional Constitutional: Denies chills, Denies fever - Gastrointestinal Gastrointestinal: Reports nausea, Reports vomiting - Genitourinary (Male) Genitourinary: Reports flank pain, Reports kidney stones, Denies dysuria, Denies hematuria, Denies urinary frequency Past Medical History Past Medical History: Osteoarthritis (OA), Sleep Apnea/CPAP/BIPAP Additional Past Medical History / Comment(s): no longer problems with sleep apnea since deviated septum History of Any Multi-Drug Resistant Organisms: None Reported Past Surgical History: Joint Replacement Additional Past Surgical History / Comment(s): deviated septum repair,vasectomy, right hip replacement Past Anesthesia/Blood Transfusion Reactions: Motion Sickness, Postoperative Nausea & Vomiting (PONV) Additional Past Anesthesia/Blood Transfusion Reaction / Comment(s): no hx blood transfusion Past Psychological History: No Psychological Hx Reported Smoking Status: Current every day smoker Past Alcohol Use History: Occasional Additional Past Alcohol Use History / Comment(s): Patient states he started smoking again 3 weeks ago Past Drug Use History: None Reported - Past Family History Mother Family Medical History: No Reported History Medications and Allergies Home Medications Medication Instructions Recorded Confirmed Type HYDROcodone/APAP 5-325MG [[place] 1 tab PO Q4HR PRN 3 Days #18 tab 03/11/20 03/12/20 Rx 5-325] Ondansetron Odt [Zofran ODT] 4 mg PO Q8HR PRN #10 tab 03/11/20 03/12/20 Rx Tamsulosin [Flomax] 0.4 mg PO DAILY #14 cap 03/11/20 03/12/20 Rx Allergies Allergy/AdvReac Type Severity Reaction Status Date / Time No Known Allergies Allergy Verified 03/12/20 22:28 Surgical - Exam Vital Signs Temp Pulse Resp BP Pulse Ox 98.9 F 77 18 134/99 97 03/12/20 21:38 03/12/20 21:38 03/12/20 21:38 03/12/20 21:38 03/12/20 21:38 - General well developed, well nourished, no distress - Respiratory normal respiratory effort - Abdomen Abdomen: soft, non tender, no guarding, no rigid, no rebound - Genitourinary normal penis with no external lesions, testicles non-tender - Psychiatric oriented to time, oriented to person, oriented to place, speech is normal, memory intact Results - Labs 03/12/20 22:23 03/12/20 22:23 Abnormal Lab Results - Last 24 Hours (Table) 03/12/20 03/12/20 03/12/20 Range/Units 22:23 22:23 22:23 WBC 14.7 H (3.8-10.6) k/uL Neutrophils # 11.7 H (1.3-7.7) k/uL Monocytes # 1.3 H (0-1.0) k/uL Sodium 135 L (137-145) mmol/L Creatinine 1.57 H (0.66-1.25) mg/dL Glucose 130 H (74-99) mg/dL Urine Blood Moderate H (Negative) Hyaline Casts 3 H (0-2) /lpf Urine Mucus Rare H (None) /hpf Diabetes panel 03/12/20 Range/Units 22:23 Sodium 135 L (137-145) mmol/L Potassium 4.0 (3.5-5.1) mmol/L Chloride 103 (98-107) mmol/L Carbon Dioxide 24 (22-30) mmol/L BUN 17 (9-20) mg/dL Creatinine 1.57 H (0.66-1.25) mg/dL Glucose 130 H (74-99) mg/dL Calcium 9.1 (8.4-10.2) mg/dL AST 30 (17-59) U/L ALT 49 (4-49) U/L Alkaline Phosphatase 62 (38-126) U/L Total Protein 7.0 (6.3-8.2) g/dL Albumin 4.0 (3.5-5.0) g/dL Calcium panel 03/12/20 Range/Units 22:23 Calcium 9.1 (8.4-10.2) mg/dL Albumin 4.0 (3.5-5.0) g/dL Pituitary panel 03/12/20 Range/Units 22:23 Sodium 135 L (137-145) mmol/L Potassium 4.0 (3.5-5.1) mmol/L Chloride 103 (98-107) mmol/L Carbon Dioxide 24 (22-30) mmol/L BUN 17 (9-20) mg/dL Creatinine 1.57 H (0.66-1.25) mg/dL Glucose 130 H (74-99) mg/dL Calcium 9.1 (8.4-10.2) mg/dL Adrenal panel 03/12/20 Range/Units 22:23 Sodium 135 L (137-145) mmol/L Potassium 4.0 (3.5-5.1) mmol/L Chloride 103 (98-107) mmol/L Carbon Dioxide 24 (22-30) mmol/L BUN 17 (9-20) mg/dL Creatinine 1.57 H (0.66-1.25) mg/dL Glucose 130 H (74-99) mg/dL Calcium 9.1 (8.4-10.2) mg/dL Total Bilirubin 0.8 (0.2-1.3) mg/dL AST 30 (17-59) U/L ALT 49 (4-49) U/L Alkaline Phosphatase 62 (38-126) U/L Total Protein 7.0 (6.3-8.2) g/dL Albumin 4.0 (3.5-5.0) g/dL - Imaging Abdominal x-ray: report reviewed, image reviewed CT scan - abdomen: report reviewed, image reviewed Assessment and Plan (1) Calculus of ureter Current Visit: Yes Status: Acute Code(s): N20.1 - CALCULUS OF URETER SNOMED Code(s): 35419653 Plan: I had a lengthy discussion with the patient regarding the management of his ureteral calculus. The calculus was not seen on a plain radiograph, so ESWL is not a viable option. Remaining options include continued conservative management versus ureteroscopy with laser lithotripsy. He has elected to undergo the latter, which will be performed today. The procedure was reviewed in detail with the patient. Potential risks were discussed, which include anesthesia, ureteral injury, infection, and inability to successfully remove the calculus. He is aware of the need for a ureteral stent postoperatively. Time with Patient: Greater than 30
[2020-03-13] MEDS: FAMOTIDINE 20 MG/2 ML VIAL IV SCH ×2 (09:35→23:05)
[2020-03-13] MEDS ORDERED: NEOSTIGMINE 1 MG/ML 10 ML VIAL ONE (12:50)
[2020-03-13] MEDS ORDERED: fentaNYL (PF) 50 MCG/ML 2 ML AMP ONE (12:50)
[2020-03-13] MEDS ORDERED: SUCCINYLCHOLINE CHLORIDE 100 MG/5 ML SYR IV ONE (12:50)
[2020-03-13] MEDS ORDERED: GLYCOPYRROLATE 0.2 MG/ML 2 ML VIAL ONE (12:50)
[2020-03-13] MEDS ORDERED: MIDAZOLAM 2 MG/2 ML VIAL ONE (12:50)
[2020-03-13] MEDS ORDERED: PROPOFOL 10 MG/ML 20 ML VIAL IV ONE (12:50)
[2020-03-13] MEDS ORDERED: SODIUM CHLORIDE 0.9% 1,000 ML IV ONE (12:50)
[2020-03-13] MEDS ORDERED: ROCURONIUM 10 MG/ML (10 ML VIAL) IV ONE (12:50)
[2020-03-13] MEDS ORDERED: SODIUM CHLORIDE 0.9% 100 ML with ceFAZolin 2,000 MG IV ONE ×2 (13:00)
[2020-03-13] MEDS ORDERED: IOPAMIDOL-370 50ML BTL IRRIGATION ONE (13:10)
[2020-03-13] MEDS ORDERED: LACTATED RINGERS 1,000 ML IV ONE ×2 (13:22→13:34)
[2020-03-13] MEDS ORDERED: KETOROLAC 15 MG/ML 1 ML VIAL IVP ONE (14:53)
[2020-03-13 15:02] VITALS: RESP 18
--- NOTE | 2020-03-13 15:06 | P.OP ---
Date of Procedure: 03/13/20 Preoperative Diagnosis: Left ureteral calculus Postoperative Diagnosis: Left ureteral calculus, left ureteral stricture Procedure(s) Performed: Cystoscopy, left retrograde pyelogram, left ureteral balloon dilation, left ureteroscopy with Holmium laser lithotripsy, left ureteral stent insertion Anesthesia: KARLEY Surgeon: Kevin Orellana Estimated Blood Loss (ml): 20 IV fluids (ml): 1,000 Pathology: other (Calculus fragments, sent for chemical analysis) Condition: stable Disposition: PACU Indications for Procedure: The patient is a 50-year-old male with no prior history of urolithiasis. In 03/09/2020 he experienced acute onset of left lower back/flank pain. He was evaluated in the ER early in the morning 03/11/2020. A computed tomography scan revealed mild left hydronephrosis due to a 5 x 7 mm left proximal ureteral calculus. He was discharged home on oral analgesics but returned yesterday evening with intractable pain. He was subsequently admitted. His pain has shifted to the left lower quadrant, the significance of which is unclear. He denies hematuria and voiding symptoms. Operative Findings: 7 mm left midureteral calculus, just above the level of the iliac vessels. An area of narrowing was encountered just distal to the calculus. This required balloon dilation. Description of Procedure: The patient was taken to the operating room and placed in the dorsolithotomy pos ition, with legs supported in Emerson stirrups. The external genitalia was prepped and draped sterilely. The 30 lens was used to introduce the 21-Luxembourger Salazar cystoscopic sheath through the urethra and into the bladder under direct vision. The prostatic urethra showed evidence of mild lateral lobe enlargement. The bladder was examined in its entirety. Both ureteral orifices were normal anatomic location and configuration. No tumors or foreign bodies were seen. Using a 10-Luxembourger cone-tipped catheter, a left retrograde pyelogram was performed. The distal ureter appeared normal. The calculus was visualized just above the level of the iliac vessels. It was only faintly opaque. A 0.038 inch Glidewire was passed through the cystoscope. The ureteral orifice was cannulated, and the Glidewire was advanced up to the renal pelvis. The cystoscope was removed, and an 11/13-Luxembourger ureteral access catheter was passed over the wire, up to the proximal ureter. The flexible ureteroscope was then passed through the ureteral access catheter sheath, up to the stone. The ureter just distal to the calculus was narrowed. The ureteroscope could not be passed through this narrowed segment of the ureter. Therefore, the Glidewire was replaced and the ureteral access catheter was removed along with the ureteroscope. A 15-Luxembourger, 4 cm balloon dilating catheter was used to dilate the narrowed portion of the ureter. The ureteral access catheter was then replaced over the wire, and ureteroscopy was repeated. It was possible to reach the calculus. The 200 micron Holmium laser probe was passed through the ureteroscope, and lithotripsy was performed. This was done primarily using a dusting mode, but some fragmenting was performed as well. All calculus fragments passed distally into the bladder. There was no evidence of bladder perforation. Pullout ureteroscopy was performed to confirm that there were no residual calculus fragments within the ureter. The cystoscope was then passed into the bladder. The Glidewire was passed up to the left renal pelvis, and a 26 cm, 6-Luxembourger double-J ureteral stent was placed over the wire. Proper stent positioning was verified fluoroscopically and endoscopically. The bladder was emptied and the cystoscope removed. The removed calculus fragments were saved and sent for chemical analysis. The patient tolerated the procedure well and was taken to the recovery room in stable condition. [facility] Report: Procedure Acuity: Urgent Stone Size and Location: 7 mm, left mid ureter Ureteral Dilation: Balloon Dilation Ureteral Access Sheath Used: Yes Stone Sent for Analysis: Yes All Stones/Fragments Were Removed with a Basket: No Complications: No Preoperative Antibiotics Given: Yes Stent Placed: Yes If Stent Placed, Was String Left Attached: No If Stent Placed, When is it to be Removed: 2 weeks] Discharge Medications: None
[2020-03-13] MEDS ORDERED: HYDROcodone/APAP 5-325MG 1 EACH TAB PO PRN ×2 (15:07)
[2020-03-13] MEDS: SODIUM CHLORIDE 0.9% 1,000 ML IV SCH (18:17)
[2020-03-14 06:13] VITALS: BP 118/63; PULSE 61; TEMP 98.3
--- NOTE | 2020-03-14 07:12 | FL ---
EXAMINATION TYPE: FL urography retrograde DATE OF EXAM: 03/13/2020 FLUOROSCOPY Fluoroscopy time of 1 minute 23 seconds was used during urologic intervention for left ureteral calcu carole, laser lithotripsy. 8 image/s document/s the procedure.
--- NOTE | 2020-03-14 07:48 | P.CONS ---
History of Present Illness - History of Present Illness This is a pleasant 50 years old male with past medical history of sleep apnea and osteoarthritis and cigarette smoker. Presents because of left flank pain of one-day duration.Alcohol and also visited the emergency room for this and he was reported of kidney stone, however yesterday his pain become increasing worse so he decided to come to emergency room again Vital signs stable, afebrile. Labs showed leukocytosis of 14.7 K, creatinine is elevated at 1.57, with baseline is 1.1. Liver function tests are unremarkable. Urinary analysis showing moderate blood. CT of the abdomen and pelvis without contrast done on 03/11 showing a 5 x 7 mm obstructing stone in the proximal left ureter about 1.5 cm from the renal pelvis with some mild hydronephrosis KUB showing no acute abdomen, no evidence of stone Patient underwent cystoscopy with laser lithotripsy of the left ureteral calculus and placement of left ureteral stent Patient currently is on normal saline at 50 mL per hour, Dilaudid. When I saw the patient was just came from operation room to the floor, he was awake and alert, slightly lethargic but he understands normally. He does not look in distress. He did not have any specific complaint at that time. Patient was informed about his problems including the lung nodule and he verbalized understanding and acceptance Review of Systems CONSTITUTIONAL: No fever, no malaise, no fatigue. HEENT: No recent visual problems or hearing problems. Denied any sore throat. CARDIOVASCULAR: No orthopnea, PND, no palpitations, no syncope. PULMONARY: No shortness of breath, no cough, no hemoptysis. GASTROINTESTINAL: No diarrhea, no nausea, no vomiting, no abdominal pain. Normoactive bowel sounds. NEUROLOGICAL: No headaches, no weakness, no numbness. HEMATOLOGICAL: Denies any bleeding or petechiae. GENITOURINARY: Denies any burning micturition, frequency, or urgency. MUSCULOSKELETAL/RHEUMATOLOGICAL: Denies any joint pain, swelling, or any muscle pain. ENDOCRINE: Denies any polyuria or polydipsia. Past Medical History Past Medical History: Osteoarthritis (OA), Sleep Apnea/CPAP/BIPAP Additional Past Medical History / Comment(s): no longer problems with sleep apnea since deviated septum History of Any Multi-Drug Resistant Organisms: None Reported Past Surgical History: Joint Replacement Additional Past Surgical History / Comment(s): deviated septum repair,vasectomy, right hip replacement Past Anesthesia/Blood Transfusion Reactions: Motion Sickness, Postoperative Nausea & Vomiting (PONV) Additional Past Anesthesia/Blood Transfusion Reaction / Comm: no hx blood transfusion Past Psychological History: No Psychological Hx Reported Smoking Status: Current every day smoker Past Alcohol Use History: Occasional Additional Past Alcohol Use History / Comment(s): Patient states he started smoking again 3 weeks ago Past Drug Use History: None Reported - Past Family History Mother Family Medical History: No Reported History Medications and Allergies Home Medications Medication Instructions Recorded Confirmed Type HYDROcodone/APAP 5-325MG [[place] 1 tab PO Q4HR PRN 3 Days #18 tab 03/11/20 03/12/20 Rx 5-325] Ondansetron Odt [Zofran ODT] 4 mg PO Q8HR PRN #10 tab 03/11/20 03/12/20 Rx Tamsulosin [Flomax] 0.4 mg PO DAILY #14 cap 03/11/20 03/12/20 Rx Allergies Allergy/AdvReac Type Severity Reaction Status Date / Time No Known Allergies Allergy Verified 03/12/20 22:28 Physical Exam Vitals: Vital Signs Temp Pulse Pulse Pulse Resp BP BP 03/13/20 15:00 64 18 128/70 03/13/20 14:48 97.7 F 72 16 124/69 03/13/20 11:31 97.8 F 61 16 124/80 03/13/20 09:10 97.8 F 63 16 128/79 03/13/20 06:23 63 03/13/20 05:00 97.8 F 63 16 128/79 03/12/20 23:43 97.8 F 68 18 96/57 03/12/20 21:38 98.9 F 77 18 134/99 Pulse Ox 03/13/20 15:00 99 03/13/20 14:48 93 L 03/13/20 11:31 98 03/13/20 09:10 95 03/13/20 06:23 03/13/20 05:00 95 03/12/20 23:43 94 L 03/12/20 21:38 97 Intake and Output 03/13/20 03/13/20 03/13/20 06:59 14:59 22:59 Intake Total 300 1700 Output Total 50 Balance 300 1650 Intake: IV 1700 Intake, IV Titration 300 Amount Sodium Chloride 0.9% 1, 300 000 ml @ 50 mls/hr IV . Q20H [facility] Rx#:[id number] Output: Estimated Blood Loss 50 Other: Voiding Method Urinal Toilet # Voids 2 Weight 125 kg GENERAL: The patient is alert and oriented x3, not in any acute distress. Well developed, well nourished. HEENT: Pupils are round and equally reacting to light. EOMI. No scleral icterus. No conjunctival pallor. Normocephalic, atraumatic. No pharyngeal erythema. No thyromegaly. CARDIOVASCULAR: S1 and S2 present. No murmurs, rubs, or gallops. PULMONARY: Chest is clear to auscultation, no wheezing or crackles. ABDOMEN: Soft, nontender, nondistended, normoactive bowel sounds. No palpable organomegaly. MUSCULOSKELETAL: No joint swelling or deformity. EXTREMITIES: No cyanosis, clubbing, or pedal edema. NEUROLOGICAL: Gross neurological examination did not reveal any focal deficits. SKIN: No rashes. No petechiae Results CBC & Chem 7: 03/12/20 22:23 03/12/20 22:23 Labs: Abnormal Lab Results - Last 24 Hours (Table) 03/12/20 03/12/20 03/12/20 Range/Units 22:23 22:23 22:23 WBC 14.7 H (3.8-10.6) k/uL Neutrophils # 11.7 H (1.3-7.7) k/uL Monocytes # 1.3 H (0-1.0) k/uL Sodium 135 L (137-145) mmol/L Creatinine 1.57 H (0.66-1.25) mg/dL Glucose 130 H (74-99) mg/dL Urine Blood Moderate H (Negative) Hyaline Casts 3 H (0-2) /lpf Urine Mucus Rare H (None) /hpf Assessment and Plan Assessment: 5 x 7 mm obstructing stone in the proximal left ureter about 1.5 cm from the renal pelvis with some mild hydronephrosis, status post lithotripsy and left ureteral ureteral stent placement Flank pain, secondary to above. Renal colic Acute kidney injury Nicotine dependence 4 mm left lower pulmonary nodule Sleep apnea on CPAP/BiPAP Osteoarthritis Plan: This is a pleasant 50 years old male who presents with left ureteral stone and acute kidney injury. Continue with IV fluid and pain medication. Urology primary team of the case Formed about the 4 mm sup pleural nodule in the left lateral lower lobe with optional follow-up chest CAT scan in 12 months to be performed. Risks including but not limited to cancer are explained, patient referred to Dr. Barnard as an outpatient with contact information is provided for him on the discharge instructions Labs and medication were reviewed.. Continue same treatment. Continue with symptomatic treatment. Resume home medication. Monitor lytes and vitals. DVT and GI prophylaxis. Further recommendations depends on the clinical course of the patient DVT prophylaxis: Subcutaneous heparin GI Prophylaxis: Pepcid
--- NOTE | 2020-03-14 08:05 | P.DS ---
Providers Date of admission: 03/12/20 23:13 Attending physician: Kevin Orellana [facility]: [facility] Course: The patient was admitted 03/13/2020 with a left ureteral stone. Dr. Orellana perform left ureteroscopy and laser lithotripsy with stent placement yesterday. He is feeling much better this morning. His vital signs are stable. He has some mild stent discomfort. He has pain medicine at home. He'll be discharged home today on a regular diet limited activity. He'll follow-up with Dr. Orellana's office in 2 weeks for stent removal. Patient Condition at Discharge: Good Plan - Discharge Summary Discharge Rx Participant: No New Discharge Prescriptions: No Action Tamsulosin [Flomax] 0.4 mg PO DAILY #14 cap HYDROcodone/APAP 5-325MG [[place]phiem 5-325] 1 tab PO Q4HR PRN 3 Days #18 tab PRN Reason: Pain Ondansetron Odt [Zofran ODT] 4 mg PO Q8HR PRN #10 tab PRN Reason: Nausea Discharge Medication List HYDROcodone/APAP 5-325MG [[place] 5-325] 1 tab PO Q4HR PRN 3 Days #18 tab 03/11/20 [Rx] Ondansetron Odt [Zofran ODT] 4 mg PO Q8HR PRN #10 tab 03/11/20 [Rx] Tamsulosin [Flomax] 0.4 mg PO DAILY #14 cap 03/11/20 [Rx] Follow up Appointment(s)/Referral(s): Kevin Orellana MD [STAFF PHYSICIAN] - 2 Weeks (Cystoscopy with stent removal) Terence Apodaca DO [Primary Care Provider] - 1-2 days Alfonso Barnard MD [STAFF PHYSICIAN] - 4 Weeks (4 mm left lung nodule) Activity/Diet/Wound Care/Special Instructions: Diet as tolerated. Activity as tolerated. Drink plenty of fluids. Reassure patient that hematuria is expected in patients with ureteral stents. Discharge Disposition: HOME SELF-CARE
[2020-03-14] MEDS ORDERED: HEPARIN SODIUM,PORCINE 5,000 UNIT/ML 1 ML VIAL SQ SCH (09:00)
== END 2020-03-14 12:15 | disposition home or self-care (01) | DRG 660 ==
LOC: EC 21:30 → 5NMEDONC 23:13
PROVIDERS: ADMIT Urology; ATTEND Urology
PROC: 0T778DZ Dilation of Left Ureter with Intraluminal Device, Via Natural or Artificial Opening Endoscopic (ICD-10-PCS; principal; 2020-03-13 12:30)
PROC: 0TC78ZZ Extirpation of Matter from Left Ureter, Via Natural or Artificial Opening Endoscopic (ICD-10-PCS; 2020-03-13 12:30)
PROC: BT1F1ZZ Fluoroscopy of Left Kidney, Ureter and Bladder using Low Osmolar Contrast (ICD-10-PCS; 2020-03-13 12:30)
DX: N13.2 Hydronephrosis with renal and ureteral calculous obstruction (principal); Z68.41 Body mass index [BMI] 40.0-44.9, adult; N17.9 Acute kidney failure, unspecified; E66.01 Morbid (severe) obesity due to excess calories; G47.30 Sleep apnea, unspecified; M19.90 Unspecified osteoarthritis, unspecified site; F17.210 Nicotine dependence, cigarettes, uncomplicated; R91.1 Solitary pulmonary nodule; Z79.899 Other long term (current) drug therapy; Z98.890 Other specified postprocedural states; Z96.641 Presence of right artificial hip joint
CPT/HCPCS: 36415; 74018; 74420; 80053; 81001; 82150; 82365; 83690; 85025; 96374; 96375; 99285

== ENCOUNTER 2020-04-02 13:18 | Emergency (ER) | payer OTHER ==
[2020-04-02 13:22] VITALS: RESP 18; TEMP 97.8
[2020-04-02] MEDS ORDERED: SODIUM CHLORIDE 0.9% 1,000 ML IV STA (13:57)
[2020-04-02 14:30] LABS: Basophils # (A) 0.1 k/uL (0-0.2); Basophils % (A) 1 %; Eosinophils # (A) 0.2 k/uL (0-0.7); Eosinophils % (A) 1 %; HCT 42.8 % (39.0-53.0); Lymphocytes % (A) 7 %; MCH 31.3 pg (25.0-35.0); MCHC 35.1 g/dL (31.0-37.0); Mean Platelet Volume 7.4; Monocytes % (A) 8 %; Neutrophils # (A) 10.3 k/uL (1.3-7.7); Neutrophils % (A) 80 %; Platelet Count 223 k/uL (150-450); RBC 4.81 m/uL (4.30-5.90); RDW 12.1 % (11.5-15.5); WBC 12.9 k/uL (3.8-10.6)
[2020-04-02] MEDS ORDERED: MORPHINE SULFATE 4 MG/ML SYRINGE IVP STA (14:36)
[2020-04-02 14:38] LABS: Appearance,Urine Cloudy (Clear); Bacteria,Urine Rare /hpf; Bilirubin,Urine Negative (Negative); Blood,Urine Trace (Negative); Color,Urine Yellow; Glucose,Urine (UA) Negative (Negative); Ketones,Urine Negative (Negative); Leukocyte Esterase,Urine Large (Negative); Mucus,Urine Moderate /hpf; Nitrite,Urine Negative (Negative); Protein,Urine 1+ (Negative); RBC,Urine 5 /hpf (0-5); Specific Gravity,Urine 1.019 (1.001-1.035); Squamous Epithelial Cell,Urine <1 /hpf (0-4); Urobilinogen,Urine <2.0 mg/dL (<2.0); WBC,Urine 105 /hpf (0-5)
[2020-04-02 14:40] LABS: ALT 26 U/L (4-49); AST 22 U/L (17-59); African American GFR (CKD) >90 (>60 ml/min/1.73 sqM); Alkaline Phosphatase 87 U/L (38-126); Anion Gap 13 mmol/L; Blood Urea Nitrogen 17 mg/dL (9-20); Calcium 9.7 mg/dL (8.4-10.2); Carbon Dioxide 23 mmol/L (22-30); Chloride 99 mmol/L (98-107); Glucose 107 mg/dL (74-99); Lipase 67 U/L (23-300); Non-African American GFR(CKD) 84 (>60 ml/min/1.73 sqM); Potassium 3.7 mmol/L (3.5-5.1); Sodium 135 mmol/L (137-145); Total Bilirubin 0.7 mg/dL (0.2-1.3); Total Protein 7.1 g/dL (6.3-8.2)
[2020-04-02] MEDS ORDERED: cefTRIAXone IN SWFI 1,000 MG/10 ML SYRINGE IVP STA (14:51)
--- NOTE | 2020-04-02 15:04 | XR ---
EXAM: Abdomen radiograph. HISTORY: Pain. TECHNIQUE: Upright AP view. COMPARISON: 03/12/2020. FINDINGS: There is paucity of bowel gas with a nonobstructive pattern. No free air. There are no pathologic dipika cifications. No acute osseous abnormality seen. Right hip arthroplasty seen. IMPRESSION: Nonobstructive bowel gas pattern.
--- NOTE | 2020-04-02 15:49 | US ---
EXAMINATION TYPE: US renals and bladder DATE OF EXAM: 04/02/2020 COMPARISON: CT 2020 CLINICAL HISTORY: abd pain, recent ureteral calculus removal/stent. History of left stone EXAM MEASUREMENTS: Right Kidney: 11.9 x 5.7 x 5.8 cm Left Kidney: 12.9 x 7.5 x 6.0 cm Right Kidney: No hydronephrosis or masses seen Left Kidney: No hydronephrosis or masses seen Bladder: not distended, kincaid catheter There is no evidence for hydronephrosis at this point in time. No nephrolithiasis is seen. No que s are identified. IMPRESSION: No significant bilateral hydronephrosis.
--- NOTE | 2020-04-02 15:55 | ED ---
Abdominal Pain HPI - General Chief Complaint: Abdominal Pain Stated Complaint: Poss kidney infection Source: patient Mode of arrival: ambulatory Limitations: no limitations - History of Present Illness Initial Comments: 50-year-old male who presents to the emergency department with reported abdominal distention and inability to void. He was seen on March 11 for left flank pain. He was, the patient had a 7 mm stone. Patient's attempted to go home and pass the stone however had difficulty and return to the hospital on the . He was admitted to the . Had cystoscopy with stent placement. Procedure was performed by Dr. Orellana. States that he went into the office this past Saturday and had the stent pulled. Saturday he began having increased frequency of urination and burning. Dr. Orellana wrote him for an antibiotics and told him that he should start taking the medication on Saturday the symptoms persisted. Patient reports that he continued to have discomfort and therefore has taken 4 doses of Cipro at this time. Patient awoke this morning with lower abdominal discomfort and bloating. Also continues to have inability to urinate. Dr. orellana recommended that he come in to the emergency room for further evaluation. He admits to shaking chills without recorded fevers. No chest pain or shortness of breath. Does have mild back discomfort. No hematuria. Denies diarrhea, constipation, melenic stools or hematochezia. No other alleviating, precipitating or modifying factors - Related Data Home Medications Medication Instructions Recorded Confirmed Ciprofloxacin HCl [Cipro] 500 mg PO BID 04/02/20 04/02/20 Previous Rx's Medication Instructions Recorded HYDROcodone/APAP 5-325MG [[place] 1 tab PO Q4HR PRN 3 Days #18 tab 03/11/20 5-325] Ondansetron Odt [Zofran ODT] 4 mg PO Q8HR PRN #10 tab 03/11/20 Tamsulosin [Flomax] 0.4 mg PO DAILY #10 cap 04/02/20 Allergies Allergy/AdvReac Type Severity Reaction Status Date / Time No Known Allergies Allergy Verified 04/02/20 14:01 Review of Systems ROS Statement: Those systems with pertinent positive or pertinent negative responses have been documented in the HPI. ROS Other: All systems not noted in ROS Statement are negative. Past Medical History Past Medical History: Osteoarthritis (OA), Sleep Apnea/CPAP/BIPAP Additional Past Medical History / Comment(s): no longer problems with sleep apnea since deviated septum, kidney stone History of Any Multi-Drug Resistant Organisms: None Reported Past Surgical History: Joint Replacement Additional Past Surgical History / Comment(s): deviated septum repair,vasectomy, right hip replacement Past Anesthesia/Blood Transfusion Reactions: Motion Sickness, Postoperative Nausea & Vomiting (PONV) Additional Past Anesthesia/Blood Transfusion Reaction / Comment(s): no hx blood transfusion Past Psychological History: No Psychological Hx Reported Smoking Status: Current every day smoker Past Alcohol Use History: Occasional Past Drug Use History: None Reported - Past Family History Mother Family Medical History: No Reported History General Exam Limitations: no limitations Course Vital Signs 04/02/20 04/02/20 04/02/20 13:19 14:22 15:00 Temperature 97.8 F Pulse Rate 94 81 Respiratory 18 18 18 Rate Blood Pressure 144/88 121/78 O2 Sat by Pulse 97 100 Oximetry 04/02/20 04/02/20 16:00 16:45 Temperature 97.8 F Pulse Rate 77 77 Respiratory 18 18 Rate Blood Pressure 105/62 105/62 O2 Sat by Pulse 100 100 Oximetry Medical Decision Making - Medical Decision Making Upon arrival patient was placed into room 17. A thorough history and physical exam was performed. IV is established the patient is given 4 mg of morphine for pain control. Laboratory studies conducted. Bladder scan is performed and demonstrates that the patient has greater than 500 mL in his bladder. Polk is inserted with return of 1200 mL of dark urine. Laboratory studies are reviewed and demonstrate a white count 12.9. Urinalysis demonstrates large leukocyte esterase, 5 white blood cells and rare bacteria. Ultrasound demonstrates no signs of hydronephrosis. KUB demonstrates a nonobstructive bowel pattern. Patient is reevaluated and demonstrates that he does have improvement in his pain with Polk insertion. He does have some discomfort at the urethral opening. Results are discussed the patient. I spoke with Dr. Steen in regards the patient's care. Patient will be discharged home on Flomax. He is to continue taking the antibiotics. Patient has 5 more days of antibiotics at home. He also has Motrin and [place] for pain control. Polk will be kept in place for at least one week. He is to call Saturday make an appointment with Dr. Steen's office. Return to the emergency room for any new or worsening symptoms. Patient was in agreement with this plan and was discharged home in stable condition - Lab Data Result diagrams: 04/02/20 14:22 04/02/20 14:22 Lab Results 04/02/20 04/02/20 04/02/20 Range/Units 14:22 14:22 14:22 WBC 12.9 H (3.8-10.6) k/uL RBC 4.81 (4.30-5.90) m/uL Hgb 15.0 (13.0-17.5) gm/dL Hct 42.8 (39.0-53.0) % MCV 89.0 (80.0-100.0) fL MCH 31.3 (25.0-35.0) pg MCHC 35.1 (31.0-37.0) g/dL RDW 12.1 (11.5-15.5) % Plt Count 223 (150-450) k/uL MPV 7.4 Neutrophils % 80 % Lymphocytes % 7 % Monocytes % 8 % Eosinophils % 1 % Basophils % 1 % Neutrophils # 10.3 H (1.3-7.7) k/uL Lymphocytes # 1.0 (1.0-4.8) k/uL Monocytes # 1.0 (0-1.0) k/uL Eosinophils # 0.2 (0-0.7) k/uL Basophils # 0.1 (0-0.2) k/uL Sodium 135 L (137-145) mmol/L Potassium 3.7 (3.5-5.1) mmol/L Chloride 99 (98-107) mmol/L Carbon Dioxide 23 (22-30) mmol/L Anion Gap 13 mmol/L BUN 17 (9-20) mg/dL Creatinine 1.04 (0.66-1.25) mg/dL Est GFR (CKD-EPI)AfAm >90 (>60 ml/min/1.73 sqM) Est GFR (CKD-EPI)NonAf 84 (>60 ml/min/1.73 sqM) Glucose 107 H (74-99) mg/dL Plasma Lactic Acid [place] (0.7-2.0) mmol/L Calcium 9.7 (8.4-10.2) mg/dL Total Bilirubin 0.7 (0.2-1.3) mg/dL AST 22 (17-59) U/L ALT 26 (4-49) U/L Alkaline Phosphatase 87 (38-126) U/L Total Protein 7.1 (6.3-8.2) g/dL Albumin 4.0 (3.5-5.0) g/dL Lipase 67 (23-300) U/L Urine Color Yellow Urine Appearance Cloudy (Clear) Urine pH 6.0 (5.0-8.0) Ur Specific [place] 1.019 (1.001-1.035) Urine Protein 1+ H (Negative) Urine Glucose (UA) Negative (Negative) Urine Ketones Negative (Negative) Urine Blood Trace H (Negative) Urine Nitrite Negative (Negative) Urine Bilirubin Negative (Negative) Urine Urobilinogen <2.0 (<2.0) mg/dL Ur Leukocyte Esterase Large H (Negative) Urine RBC 5 (0-5) /hpf Urine WBC 105 H (0-5) /hpf Ur Squamous Epith Cells <1 (0-4) /hpf Urine Bacteria Rare H (None) /hpf Urine Mucus Moderate H (None) /hpf 04/02/20 Range/Units 14:22 WBC (3.8-10.6) k/uL RBC (4.30-5.90) m/uL Hgb (13.0-17.5) gm/dL Hct (39.0-53.0) % MCV (80.0-100.0) fL MCH (25.0-35.0) pg MCHC (31.0-37.0) g/dL RDW (11.5-15.5) % Plt Count (150-450) k/uL MPV Neutrophils % % Lymphocytes % % Monocytes % % Eosinophils % % Basophils % % Neutrophils # (1.3-7.7) k/uL Lymphocytes # (1.0-4.8) k/uL Monocytes # (0-1.0) k/uL Eosinophils # (0-0.7) k/uL Basophils # (0-0.2) k/uL Sodium (137-145) mmol/L Potassium (3.5-5.1) mmol/L Chloride (98-107) mmol/L Carbon Dioxide (22-30) mmol/L Anion Gap mmol/L BUN (9-20) mg/dL Creatinine (0.66-1.25) mg/dL Est GFR (CKD-EPI)AfAm (>60 ml/min/1.73 sqM) Est GFR (CKD-EPI)NonAf (>60 ml/min/1.73 sqM) Glucose (74-99) mg/dL Plasma Lactic Acid [place] 1.3 (0.7-2.0) mmol/L Calcium (8.4-10.2) mg/dL Total Bilirubin (0.2-1.3) mg/dL AST (17-59) U/L ALT (4-49) U/L Alkaline Phosphatase (38-126) U/L Total Protein (6.3-8.2) g/dL Albumin (3.5-5.0) g/dL Lipase (23-300) U/L Urine Color Urine Appearance (Clear) Urine pH (5.0-8.0) Ur Specific [place] (1.001-1.035) Urine Protein (Negative) Urine Glucose (UA) (Negative) Urine Ketones (Negative) Urine Blood (Negative) Urine Nitrite (Negative) Urine Bilirubin (Negative) Urine Urobilinogen (<2.0) mg/dL Ur Leukocyte Esterase (Negative) Urine RBC (0-5) /hpf Urine WBC (0-5) /hpf Ur Squamous Epith Cells (0-4) /hpf Urine Bacteria (None) /hpf Urine Mucus (None) /hpf Disposition Clinical Impression: Urinary retention, UTI (urinary tract infection), S/P ureteral stent placement Disposition: HOME SELF-CARE Condition: Stable Instructions (If sedation given, give patient instructions): Urinary Retention in Men (ED), Polk Catheter Placement and Care (ED) Additional Instructions: Please follow up with the urology office this week. Call Saturday for an appo intment. Your catheter will have to remain in place for 1 week. Return to the ED for any new or worsening symptoms. Take Motrin and [place] alternating for pain control Prescriptions: Tamsulosin [Flomax] 0.4 mg PO DAILY #10 cap Is patient prescribed a controlled substance at d/c from ED?: No Referrals: Terence Apodaca DO [Primary Care Provider] - 1-2 days Kevin Orellana MD [STAFF PHYSICIAN] - 1-2 days Time of Disposition: 16:32
[2020-04-02] MEDS ORDERED: TAMSULOSIN 0.4 MG CAP.ER.24H PO STA (16:28)
[2020-04-02 16:46] VITALS: BP 105/62; PULSE 77
== END 2020-04-02 15:47 | disposition home or self-care (01) ==
LOC: EC 13:18
DX: N39.0 Urinary tract infection, site not specified (principal); R33.9 Retention of urine, unspecified; G47.33 Obstructive sleep apnea (adult) (pediatric); Z99.89 Dependence on other enabling machines and devices; F17.200 Nicotine dependence, unspecified, uncomplicated; Z96.641 Presence of right artificial hip joint
CPT/HCPCS: 99285; 96374; 96375; 96361; 51702; 51798; 36415; 80053; 83605; 83690; 85025; 81001; 87086; 74018; 76770; J2270; J0696

== ENCOUNTER 2020-05-13 18:48 | Emergency (ER) | payer OTHER ==
[2020-05-13 19:07] VITALS: BP 139/94; PULSE 95; RESP 18; TEMP 98.3
[2020-05-13] MEDS ORDERED: LIDOCAINE URO-JET JELLY 2% 5 ML KIT URETHRAL ONE (19:20)
--- NOTE | 2020-05-13 19:23 | ED ---
General Adult HPI - General Chief complaint: Urogenital Stated complaint: male Time Seen by Provider: 05/13/20 19:09 Source: patient, RN notes reviewed, old records reviewed Mode of arrival: ambulatory Limitations: no limitations - History of Present Illness Initial comments: 50-year-old male who has been dealing with urinary retention over the past several months. He has seen physicians both locally and at [facility]. He had his catheter removed yesterday and had some extensive testing at [facility]. He states that over the night he was able to urinate spontaneously but has not been able to urinate today. He was instructed by [facility] to drink 3 bottles of water and attempt to urinate but this did not work. Patient is requesting catheter for urinary retention. He denies flank pain. Denies fever. Denies vomiting. He has had extensive workup of this retention. - Related Data Home Medications Medication Instructions Recorded Confirmed Ciprofloxacin HCl [Cipro] 500 mg PO BID 04/02/20 04/02/20 Previous Rx's Medication Instructions Recorded HYDROcodone/APAP 5-325MG [[place] 1 tab PO Q4HR PRN 3 Days #18 tab 03/11/20 5-325] Ondansetron Odt [Zofran ODT] 4 mg PO Q8HR PRN #10 tab 03/11/20 Tamsulosin [Flomax] 0.4 mg PO DAILY #10 cap 04/02/20 Allergies Allergy/AdvReac Type Severity Reaction Status Date / Time No Known Allergies Allergy Verified 04/02/20 14:01 Review of Systems ROS Statement: Those systems with pertinent positive or pertinent negative responses have been documented in the HPI. ROS Other: All systems not noted in ROS Statement are negative. Past Medical History Past Medical History: Osteoarthritis (OA), Sleep Apnea/CPAP/BIPAP Additional Past Medical History / Comment(s): no longer problems with sleep apnea since deviated septum, kidney stone History of Any Multi-Drug Resistant Organisms: None Reported Past Surgical History: Joint Replacement Additional Past Surgical History / Comment(s): deviated septum repair,vasectomy, right hip replacement Past Anesthesia/Blood Transfusion Reactions: Motion Sickness, Postoperative Nausea & Vomiting (PONV) Additional Past Anesthesia/Blood Transfusion Reaction / Comment(s): no hx blood transfusion Past Psychological History: No Psychological Hx Reported Smoking Status: Current every day smoker Past Alcohol Use History: Occasional Past Drug Use History: None Reported - Past Family History Mother Family Medical History: No Reported History General Exam Limitations: no limitations General appearance: alert, in no apparent distress Head exam: Present: atraumatic, normocephalic Eye exam: Present: normal appearance, PERRL ENT exam: Present: normal exam Neck exam: Present: normal inspection. Absent: tenderness, meningismus Respiratory exam: Present: normal lung sounds bilaterally. Absent: respiratory distress, wheezes Cardiovascular Exam: Present: regular rate, normal rhythm GI/Abdominal exam: Present: soft. Absent: distended, tenderness, guarding Extremities exam: Present: normal inspection, normal capillary refill Back exam: Present: normal inspection. Absent: CVA tenderness (R), CVA tenderness (L) Neurological exam: Present: alert, oriented X3 Psychiatric exam: Present: normal affect, normal mood Skin exam: Present: warm, dry, intact. Absent: cyanosis, diaphoretic Course Vital Signs 05/13/20 19:02 Temperature 98.3 F Pulse Rate 95 Respiratory 18 Rate Blood Pressure 139/94 O2 Sat by Pulse 99 Oximetry Medical Decision Making - Medical Decision Making 50-year-old male with urinary retention, Polk catheter placed, symptoms improved. Patient will follow with [facility] on Saturday. Disposition Clinical Impression: Acute retention of urine Disposition: HOME SELF-CARE Condition: Good Instructions (If sedation given, give patient instructions): Urinary Retention in Men (ED) Is patient prescribed a controlled substance at d/c from ED?: No Referrals: Terence Apodaca DO [Primary Care Provider] - 1-2 days Time of Disposition: 19:23
== END 2020-05-13 20:04 | disposition home or self-care (01) ==
LOC: EC 18:48
DX: R33.9 Retention of urine, unspecified (principal); G47.30 Sleep apnea, unspecified; F17.200 Nicotine dependence, unspecified, uncomplicated; Z96.641 Presence of right artificial hip joint; Z99.89 Dependence on other enabling machines and devices
CPT/HCPCS: 51702; 99283